=== PATIENT | female | born 1960 | race Two or more races ===

== ENCOUNTER 2016-05-10 18:10 | Inpatient (IN) | payer SELFPAY ==
[~2016-05-10] VITALS: Ht 162.6 cm; Wt 57.7 kg
[2016-05-10 18:39] LABS: Basophils # (auto) 0 uL; Basophils % (auto) 0.1 % (0.0-2.0); Eosinophils # (auto) 0 uL; Eosinophils % (auto) 0.2 % (0.0-7.0); Hematocrit 38.9 % (36.0-46.0); Hemoglobin 12.9 g/dL (12.2-16.2); Lymphocytes # (auto) 1.7 uL; Mean Corpuscular Hemoglobin 29.3 pg (28.0-32.0); Mean Corpuscular Hgb Conc. 33.2 g/dL (32.0-36.0); Mean Corpuscular Volume 88.1 fL (80.0-100.0); Mean Platelet Volume 8.3 fL (7.4-10.4); Monocytes # (auto) 0.8 uL; Monocytes % (auto) 8.8 % (0.0-12.0); Neutrophils # (auto) 6.9 uL; Neutrophils % (auto) 72.9 % (37.0-80.0); Platelet Count (auto) 352 10^3/uL (140-450); Red Cell Distribution Width 12.8 % (11.6-16.0); White Blood Cell 9.5 10^3/uL (4.4-10.8)
[2016-05-10 19:13] LABS: Albumin 2.8 g/dL (3.4-5.0); Alkaline Phosphatase 162 U/L (45-117); Anion Gap 14 (5-15); Aspartate Aminotransferase 14 U/L (15-37); BUN/Creatinine Ratio 9.6; Bilirubin, Total 0.3 mg/dL (0.2-1.0); Blood Urea Nitrogen 13 mg/dL (7-18); Calcium 8.8 mg/dL (8.5-10.1); Carbon Dioxide 27 mmol/L (21-32); Chloride 81 mmol/L (98-107); GFR African American 52 mL/min; GFR Non-African American 43 mL/min; Magnesium 2.5 mg/dL (1.6-2.6); Potassium 4.7 mmol/L (3.5-5.1); Sodium 122 mmol/L (136-145); Total Protein 8.4 g/dL (6.4-8.2)
[2016-05-10 19:38] LABS: Glucose 1122 mg/dL (74-106)
[2016-05-10] MEDS ORDERED: InsuLIN R (HUMAN) 100 UNITS in SODIUM CHL 0.9% 99 ML IV SCH (19:52)
[2016-05-10] MEDS ORDERED: DEXTROSE (50%) 50ML SYRG IV PRN (20:00)
[2016-05-10] MEDS: ACCU-CHEK COMFORT CURVE STRIP VI SCH ×4 (20:00→23:02)
[2016-05-10] MEDS ORDERED: SODIUM CHLORIDE 0.9% 2,000 ML IV ONE (20:00)
[2016-05-10] MEDS ORDERED: InsuLIN REG 1unit/0.01ml Soln (100units/ml) ONE (20:46)
[2016-05-10] MEDS ORDERED: InsuLIN REG 1unit/0.01ml Soln (100units/ml) IV ONE (21:00)
[2016-05-10] MEDS ORDERED: POTASSIUM CHL 20MEQ/100ML 100 ML IV ONE (22:30)
[2016-05-10] MEDS ORDERED: D5W/SOD CHLO 0.9% 1,000 ML IV ONE (22:30)
[2016-05-10 23:16] LABS: BUN/Creatinine Ratio 12.1; Calcium 8.2 mg/dL (8.5-10.1); Potassium 4.8 mmol/L (3.5-5.1)
[2016-05-10] MEDS ORDERED: POTASSIUM CHL 10 Meq TABLET PO ONE (23:30)
[2016-05-11] VITALS (7 sets, daily range): BP systolic 101–157; BP diastolic 58–84
[2016-05-11] MEDS: ACCU-CHEK COMFORT CURVE STRIP VI SCH ×9 (00:28→23:32)
[2016-05-11] MEDS ORDERED: DEXTROSE (50%) 50ML SYRG IV PRN ×2 (01:15→14:30)
[2016-05-11 01:19] LABS: BUN/Creatinine Ratio 15.9; Calcium 8.1 mg/dL (8.5-10.1); Potassium 3.7 mmol/L (3.5-5.1)
[2016-05-11] MEDS: InsuLIN REG 1unit/0.01ml Soln (100units/ml) SC SCH ×7 (02:02→23:34)
[2016-05-11] MEDS: SODIUM CHLORIDE 0.9% 1,000 ML IV SCH ×2 (13:00→23:32)
[2016-05-11] MEDS: metFORMIN HYDROCHLORIDE 500 MG TAB PO SCH (17:47)
[2016-05-12] VITALS (8 sets, daily range): BP systolic 103–131; BP diastolic 56–68
[2016-05-12] MEDS: ACCU-CHEK COMFORT CURVE STRIP VI SCH ×5 (03:57→20:21)
[2016-05-12] MEDS: InsuLIN REG 1unit/0.01ml Soln (100units/ml) SC SCH ×5 (03:59→20:22)
[2016-05-12 06:22] LABS: Basophils # (auto) 0 uL; Basophils % (auto) 0.4 % (0.0-2.0); Eosinophils # (auto) 0.1 uL; Eosinophils % (auto) 0.7 % (0.0-7.0); Hematocrit 31.5 % (36.0-46.0); Hemoglobin 10.4 g/dL (12.2-16.2); Lymphocytes # (auto) 2.2 uL; Lymphocytes % (auto) 24.5 % (10.0-50.0); Mean Corpuscular Hemoglobin 28.7 pg (28.0-32.0); Mean Corpuscular Hgb Conc. 33.1 g/dL (32.0-36.0); Mean Corpuscular Volume 86.7 fL (80.0-100.0); Monocytes # (auto) 0.9 uL; Monocytes % (auto) 10.6 % (0.0-12.0); Neutrophils # (auto) 5.7 uL; Neutrophils % (auto) 63.8 % (37.0-80.0); Platelet Count (auto) 290 10^3/uL (140-450); Red Cell Distribution Width 12.6 % (11.6-16.0); White Blood Cell 8.9 10^3/uL (4.4-10.8)
[2016-05-12] MEDS: metFORMIN HYDROCHLORIDE 500 MG TAB PO SCH ×2 (06:33→17:56)
[2016-05-12 06:58] LABS: Albumin 1.9 g/dL (3.4-5.0); Bilirubin, Total 0.2 mg/dL (0.2-1.0); Calcium 7.9 mg/dL (8.5-10.1); Magnesium 2.2 mg/dL (1.6-2.6)
[2016-05-12] MEDS: SODIUM CHLORIDE 0.9% 1,000 ML IV SCH ×2 (09:00→19:01)
[2016-05-12] MEDS ORDERED: INSULIN DETEMIR(LEVEMIR) 1unit/0.01ml Soln (100units/ml) SC SCH (22:00)
[2016-05-13] MEDS: InsuLIN REG 1unit/0.01ml Soln (100units/ml) SC SCH ×5 (03:56→16:00)
[2016-05-13] MEDS: SODIUM CHLORIDE 0.9% 1,000 ML IV SCH ×2 (03:58→12:18)
[2016-05-13 05:18] VITALS: BP 124/73
[2016-05-13] MEDS: ACCU-CHEK COMFORT CURVE STRIP VI SCH ×3 (05:46→17:13)
[2016-05-13] MEDS: metFORMIN HYDROCHLORIDE 500 MG TAB PO SCH ×2 (05:47→17:34)
[2016-05-13 09:00] VITALS: BP 108/67
[2016-05-13 13:00] VITALS: BP 118/61
[2016-05-13 15:05] VITALS: BP 118/61
[2016-05-13 17:20] VITALS: BP 157/82
== END 2016-05-13 18:15 | disposition home or self-care (01) | DRG 637 ==
LOC: ER 18:10 → TELE 18:11 → TELE-EAST 05-11 06:15
PROVIDERS: ADMIT Family Medicine; ATTEND Internal Medicine Pulmonary Disease
DX: E11.01 Type 2 diabetes mellitus with hyperosmolarity with coma (principal); N17.0 Acute kidney failure with tubular necrosis; E87.1 Hypo-osmolality and hyponatremia; I10 Essential (primary) hypertension; E86.0 Dehydration; Z91.19 Patient's noncompliance with other medical treatment and regimen
CPT/HCPCS: 36415; 36600; 71010; 80048; 80053; 80061; 82010; 82805; 82962; 83036; 83605; 83735; 84443; 84484; 85025; 93005; 93306; 96361; 96365; 96375; J1815

== ENCOUNTER 2017-08-25 11:28 | Inpatient (IN) | payer MEDICAID, OTHER ==
[~2017-08-25] VITALS: Ht 172.7 cm; Wt 62.0 kg
[~2017-08-25 11:28] MED LIST: HYDR12.56 PO; LISI-646 PO; SITA50TA28 PO
[2017-08-25] MEDS ORDERED: SODIUM CHLORIDE 0.9% 1,000 ML IVB ONE (11:40)
[2017-08-25] MEDS ORDERED: ONDANSETRON HCL 4 MG/2 ML VIAL IV ONE (11:45)
[2017-08-25 12:27] LABS: Basophils # (auto) 0.1 uL; Basophils % (auto) 0.7 % (0.0-2.0); Eosinophils # (auto) 0 uL; Eosinophils % (auto) 0.1 % (0.0-7.0); Hematocrit 36.7 % (36.0-46.0); Lymphocytes # (auto) 2.2 uL; Lymphocytes % (auto) 13.6 % (10.0-50.0); Mean Corpuscular Hemoglobin 28.2 pg (28.0-32.0); Mean Corpuscular Hgb Conc. 32.6 g/dL (32.0-36.0); Mean Corpuscular Volume 86.4 fL (80.0-100.0); Monocytes # (auto) 1.1 uL; Monocytes % (auto) 6.9 % (0.0-12.0); Neutrophils # (auto) 12.6 uL; Neutrophils % (auto) 78.7 % (37.0-80.0); Platelet Count (auto) 253 10^3/uL (140-450); Red Blood Cells 4.25 10^6/uL (4.0-5.20)
[2017-08-25 12:44] LABS: Albumin 2.9 g/dL (3.4-5.0); Bilirubin, Total 0.5 mg/dL (0.2-1.0); Calcium 8.8 mg/dL (8.5-10.1); Magnesium 2.2 mg/dL (1.6-2.6); Potassium 4.5 mmol/L (3.5-5.1); Total Protein 7.3 g/dL (6.4-8.2)
[2017-08-25 13:04] LABS: INR 0.9 (0.9-1.15); Partial Thromboplastin Time 23.5 sec (23.78-33.04); Prothrombin Time 9.7 sec (9.27-12.13)
[2017-08-25 13:46] LABS: Urine Bacteria MOD /hpf (None Seen); Urine Blood 1+ /uL (Negative); Urine Mucus FEW (None Seen); Urine Specific Gravity 1.013 (1.001-1.035); Urine WBC 375 /hpf (0 - 5); Urine WBC Clumps PRESENT /hpf (None Seen)
[2017-08-25] MEDS ORDERED: cefTRIAXone 1GM/10ml IVPUSH 10 ML IV ONE (14:00)
[2017-08-25] MEDS ORDERED: metroNIDAZOLE 500MG/100ML 100 ML IV ONE (14:15)
[2017-08-25] MEDS: SODIUM CHLORIDE 0.9% 1,000 ML IV SCH (14:58)
[2017-08-25] MEDS ORDERED: DEXTROSE (50%) 50ML SYRG IV PRN (15:00)
[2017-08-25] MEDS ORDERED: ONDANSETRON HCL 4 MG/2 ML VIAL IV PRN (15:00)
[2017-08-25] MEDS ORDERED: DOCUSATE SOD 100 MG CAP PO PRN (15:00)
[2017-08-25] MEDS ORDERED: TEMAZEPAM 15 MG CAP PO PRN (15:00)
[2017-08-25] MEDS ORDERED: HYDROcodone-ACET 5/325MG TAB PO PRN (15:00)
[2017-08-25 15:32] LABS: Hematocrit 35.7 % (36.0-46.0); Hemoglobin 11.8 g/dL (12.2-16.2)
[2017-08-25] MEDS: ACETAMINOPHEN 325 MG TAB PO PRN ×2 (16:24→23:18)
[2017-08-25 16:45] VITALS: BP 135/68
[2017-08-25] MEDS: ACCU-CHEK COMFORT CURVE STRIP VI SCH ×2 (17:00→22:00)
[2017-08-25] MEDS: Boost Glucose Control 8 Ounces PO SCH (18:00)
[2017-08-25] MEDS ORDERED: Boost Glucose Control 8 Ounces PO SCH (18:00)
[2017-08-25] MEDS: SITAGLIPTIN METFORMIN PO SCH (18:00)
[2017-08-25] MEDS: FAMOTIDINE 20 MG TAB PO SCH (19:04)
[2017-08-25] MEDS: InsuLIN REG 1unit/0.01ml Soln (100units/ml) SC SCH ×2 (19:05→22:00)
[2017-08-25 20:05] VITALS: BP 115/49
[2017-08-25 20:44] VITALS: BP 115/79
[2017-08-25 21:23] LABS: Hematocrit 30.2 % (36.0-46.0); Hemoglobin 10.1 g/dL (12.2-16.2)
[2017-08-25] MEDS: metroNIDAZOLE 500MG/100ML 100 ML IV SCH (22:00)
[2017-08-26] MEDS: SODIUM CHLORIDE 0.9% 1,000 ML IV SCH ×4 (01:11→21:52)
[2017-08-26 04:53] VITALS: BP 113/59
[2017-08-26] MEDS: metroNIDAZOLE 500MG/100ML 100 ML IV SCH ×3 (06:00→21:52)
[2017-08-26 06:13] LABS: Basophils # (auto) 0 uL; Basophils % (auto) 0.2 % (0.0-2.0); Eosinophils # (auto) 0 uL; Eosinophils % (auto) 0.3 % (0.0-7.0); Hematocrit 30.2 % (36.0-46.0); Hemoglobin 10.2 g/dL (12.2-16.2); Lymphocytes # (auto) 2.4 uL; Lymphocytes % (auto) 17.8 % (10.0-50.0); Mean Corpuscular Hemoglobin 29.5 pg (28.0-32.0); Mean Corpuscular Hgb Conc. 33.9 g/dL (32.0-36.0); Monocytes # (auto) 1.1 uL; Monocytes % (auto) 8.4 % (0.0-12.0); Neutrophils # (auto) 9.9 uL; Neutrophils % (auto) 73.3 % (37.0-80.0); Platelet Count (auto) 204 10^3/uL (140-450); Red Blood Cells 3.47 10^6/uL (4.0-5.20); Red Cell Distribution Width 13.2 % (11.8-14.3); White Blood Cell 13.6 10^3/uL (4.4-10.8)
[2017-08-26 06:32] LABS: Albumin 2.3 g/dL (3.4-5.0); BUN/Creatinine Ratio 19.1; Calcium 7.8 mg/dL (8.5-10.1); Potassium 4.5 mmol/L (3.5-5.1)
[2017-08-26 06:36] LABS: Bilirubin, Total 0.5 mg/dL (0.2-1.0)
[2017-08-26] MEDS: ACCU-CHEK COMFORT CURVE STRIP VI SCH ×4 (06:39→21:52)
[2017-08-26] MEDS: InsuLIN REG 1unit/0.01ml Soln (100units/ml) SC SCH ×4 (06:39→21:53)
[2017-08-26] MEDS ORDERED: GLIP-116 PO (07:21)
[2017-08-26 08:00] VITALS: BP 113/55
[2017-08-26] MEDS: Boost Glucose Control 8 Ounces PO SCH ×3 (08:00→17:52)
[2017-08-26] MEDS: SITAGLIPTIN METFORMIN PO SCH ×2 (08:00→17:52)
[2017-08-26 08:35] VITALS: BP 113/55
[2017-08-26] MEDS: cefTRIAXone 1GM/10ml IVPUSH 10 ML IV SCH (09:50)
[2017-08-26] MEDS: MULTIPLE VITAMIN TAB PO SCH (09:52)
[2017-08-26] MEDS: HCTZ 25 MG TAB PO SCH (09:52)
[2017-08-26] MEDS: FAMOTIDINE 20 MG TAB PO SCH (09:55)
[2017-08-26] MEDS: LISINOPRIL 20 MG TAB PO SCH (09:58)
[2017-08-26 12:48] VITALS: BP 128/68
[2017-08-26] MEDS: ACETAMINOPHEN 325 MG TAB PO PRN ×2 (13:00→21:21)
[2017-08-26 16:37] VITALS: BP 105/51
[2017-08-26 20:16] VITALS: BP 112/53
[2017-08-27 05:49] VITALS: BP 132/58
[2017-08-27] MEDS: metroNIDAZOLE 500MG/100ML 100 ML IV SCH ×3 (06:21→20:00)
[2017-08-27 06:44] LABS: Basophils # (auto) 0 uL; Basophils % (auto) 0.4 % (0.0-2.0); Eosinophils # (auto) 0.1 uL; Eosinophils % (auto) 0.9 % (0.0-7.0); Hematocrit 29.1 % (36.0-46.0); Hemoglobin 10.1 g/dL (12.2-16.2); Lymphocytes # (auto) 1.7 uL; Lymphocytes % (auto) 17.1 % (10.0-50.0); Mean Corpuscular Hemoglobin 30.2 pg (28.0-32.0); Mean Corpuscular Hgb Conc. 34.7 g/dL (32.0-36.0); Mean Corpuscular Volume 87.1 fL (80.0-100.0); Monocytes # (auto) 0.6 uL; Neutrophils # (auto) 7.6 uL; Neutrophils % (auto) 75.6 % (37.0-80.0); Nucleated Red Blood Cells % 0.1 %; Platelet Count (auto) 202 10^3/uL (140-450); Red Blood Cells 3.34 10^6/uL (4.0-5.20); White Blood Cell 10.1 10^3/uL (4.4-10.8)
[2017-08-27] MEDS: ACCU-CHEK COMFORT CURVE STRIP VI SCH ×4 (06:45→22:30)
[2017-08-27 06:50] LABS: BUN/Creatinine Ratio 16.3; Potassium 3.8 mmol/L (3.5-5.1)
[2017-08-27] MEDS: InsuLIN REG 1unit/0.01ml Soln (100units/ml) SC SCH ×4 (06:51→22:30)
[2017-08-27 08:00] VITALS: BP 153/66
[2017-08-27] MEDS: SITAGLIPTIN METFORMIN PO SCH ×2 (08:00→18:00)
[2017-08-27] MEDS: SODIUM CHLORIDE 0.9% 1,000 ML IV SCH ×2 (08:00→17:32)
[2017-08-27] MEDS: Boost Glucose Control 8 Ounces PO SCH ×3 (08:10→18:41)
[2017-08-27] MEDS: cefTRIAXone 1GM/10ml IVPUSH 10 ML IV SCH (09:34)
[2017-08-27] MEDS: HCTZ 25 MG TAB PO SCH (09:34)
[2017-08-27] MEDS: MULTIPLE VITAMIN TAB PO SCH (09:35)
[2017-08-27] MEDS: FAMOTIDINE 20 MG TAB PO SCH (09:35)
[2017-08-27] MEDS: LISINOPRIL 20 MG TAB PO SCH (09:35)
[2017-08-27 12:00] VITALS: BP 143/72
[2017-08-27 15:00] VITALS: BP 174/77
[2017-08-27] MEDS: ACETAMINOPHEN 325 MG TAB PO PRN (20:00)
[2017-08-28] MEDS: ACETAMINOPHEN 325 MG TAB PO PRN (01:31)
[2017-08-28 05:45] VITALS: BP 142/78
[2017-08-28] MEDS: metroNIDAZOLE 500MG/100ML 100 ML IV SCH ×2 (05:45→14:00)
[2017-08-28] MEDS: SODIUM CHLORIDE 0.9% 1,000 ML IV SCH (06:18)
[2017-08-28 06:32] LABS: Basophils # (auto) 0.1 uL; Basophils % (auto) 0.6 % (0.0-2.0); Eosinophils # (auto) 0.1 uL; Eosinophils % (auto) 1.2 % (0.0-7.0); Hematocrit 28.9 % (36.0-46.0); Hemoglobin 9.9 g/dL (12.2-16.2); Lymphocytes # (auto) 2.3 uL; Mean Corpuscular Hemoglobin 29.5 pg (28.0-32.0); Mean Corpuscular Hgb Conc. 34.3 g/dL (32.0-36.0); Monocytes # (auto) 0.6 uL; Monocytes % (auto) 7.1 % (0.0-12.0); Neutrophils % (auto) 66.1 % (37.0-80.0); Platelet Count (auto) 211 10^3/uL (140-450); Red Blood Cells 3.36 10^6/uL (4.0-5.20); Red Cell Distribution Width 12.8 % (11.8-14.3); White Blood Cell 9.1 10^3/uL (4.4-10.8)
[2017-08-28] MEDS: ACCU-CHEK COMFORT CURVE STRIP VI SCH ×2 (06:45→11:30)
[2017-08-28] MEDS: InsuLIN REG 1unit/0.01ml Soln (100units/ml) SC SCH ×3 (06:46→11:30)
[2017-08-28 07:10] LABS: Potassium 3.9 mmol/L (3.5-5.1)
[2017-08-28] MEDS: SITAGLIPTIN METFORMIN PO SCH (08:00)
[2017-08-28 09:00] VITALS: BP 159/84
[2017-08-28] MEDS: Boost Glucose Control 8 Ounces PO SCH ×2 (09:32→13:52)
[2017-08-28] MEDS: cefTRIAXone 1GM/10ml IVPUSH 10 ML IV SCH (09:33)
[2017-08-28] MEDS: HCTZ 25 MG TAB PO SCH (09:33)
[2017-08-28] MEDS: FAMOTIDINE 20 MG TAB PO SCH (09:33)
[2017-08-28] MEDS: LISINOPRIL 20 MG TAB PO SCH (09:33)
[2017-08-28] MEDS: MULTIPLE VITAMIN TAB PO SCH (09:33)
[2017-08-28] MEDS ORDERED: LEVO500T21 PO (11:48)
[2017-08-28] MEDS ORDERED: METR500T PO (11:48)
[2017-08-28 12:06] VITALS: BP 159/84
== END 2017-08-28 14:35 | disposition home or self-care (01) | DRG 720 ==
LOC: ER 11:28 → CENTRAL 11:29
PROVIDERS: ADMIT Internal Medicine; ATTEND Internal Medicine
DX: A41.51 Sepsis due to Escherichia coli [E. coli] (principal); N17.0 Acute kidney failure with tubular necrosis; K55.9 Vascular disorder of intestine, unspecified; E11.21 Type 2 diabetes mellitus with diabetic nephropathy; E44.0 Moderate protein-calorie malnutrition; D62 Acute posthemorrhagic anemia; E11.22 Type 2 diabetes mellitus with diabetic chronic kidney disease; N18.3 Chronic kidney disease, stage 3 (moderate); K92.2 Gastrointestinal hemorrhage, unspecified; E86.0 Dehydration; I12.9 Hypertensive chronic kidney disease with stage 1 through stage 4 chronic kidney disease, or unspecified chronic kidney disease; N39.0 Urinary tract infection, site not specified; D64.9 Anemia, unspecified; Z82.49 Family history of ischemic heart disease and other diseases of the circulatory system; Z83.3 Family history of diabetes mellitus; Z90.710 Acquired absence of both cervix and uterus; Z68.20 Body mass index [BMI] 20.0-20.9, adult
CPT/HCPCS: 36415; 71045; 74176; 80048; 80053; 81001; 82150; 82270; 82962; 83036; 83605; 83690; 83735; 85014; 85018; 85025; 85610; 85730; 86850; 86900; 86901; 87045; 87086; 87088; 87186; 87493; 87899; 93005; 94761; 96361; 96365; 96375; J1815; J2405; J3490